=== PATIENT | female | born 1960 | race Caucasian/White ===

== ENCOUNTER → 2023-05-24 | Outpatient (CLI) | payer OTHER ==
[~2023-05-24] VITALS: Ht 165.1 cm; Wt 98.0 kg
[~2023-05-24] MED LIST: ABILIFY 10MG TA10 MG PO; AMBIEN 10MG10 MG PO; ASPIRIN 81M81 MG/TA2 PO; BREZTRI AEROS10.7 GM IH; BRINTELLIX20 PO; CALCIUM 600MG+D1 TAB PO; CARAFATE 1GM1 G PO; DESENEX TOP; FLEXERIL 1010 MG/TAB PO; GEODON 40MG40 MG PO; GEODON60 MG PO; GLUCOPHAGE1000 MG PO; IMITREX100 MG PO; K-DUR20 MEQ PO; LINZESS145CAP PO; MAG-OX 400400 MG/TAB PO; MULTIPLE VITAMI1 CAP PO; NEXIUM 40MG40 MG PO; OZEMPIC1 MG/0.71 SQ; PERIACTIN 4MG TA4 MG PO; PRAVACHOL80 MG PO; PROVENTIL 2MG TA2 MG PO; SINGULAIR 110 MG/TAB PO; SYNTHROID 0.10.15 MG PO; TOPAMAX200 MG PO
[2023-05-24 13:07] VITALS: BP 154/78; PULSE 119; TEMP 98.2
--- NOTE | 2023-05-25 06:54 | NUR ---
TEST WAS ORDERED AN mri WITH SEDATION. PT WAS ABLE TO DO WITHOUT SEDATION.
== END ==
LOC: COL.RAD 11:49
DX: G43.009 Migraine without aura, not intractable, without status migrainosus (principal); Z86.73 Personal history of transient ischemic attack (TIA), and cerebral infarction without residual deficits